=== PATIENT | male | born 1995 | race Hispanic/Latino ===

== ENCOUNTER 2022-04-11 18:58 | Emergency (ER) | payer OTHER ==
[2022-04-11] MEDS ORDERED: HYDROcodone/Acetaminophen 10/325 mg Tablet ONE (21:01)
== END 2022-04-11 22:35 | disposition home or self-care (01) ==
LOC: CSHERS 18:58
DX: S52.101A Unspecified fracture of upper end of right radius, initial encounter for closed fracture (principal); W19.XXXA Unspecified fall, initial encounter
CPT/HCPCS: 24650